=== PATIENT | female | born 1980 | race Caucasian/White ===

== ENCOUNTER → 2022-08-29 16:12 | Outpatient (BNVA) | payer OTHER, SELFPAY | PROVIDERS: PCP Internal Medicine; Visit Provider Psychiatry & Neurology Psychiatry | DX: F43.12 Post-traumatic stress disorder, chronic (principal); F10.91 Alcohol use, unspecified, in remission; F32.5 Major depressive disorder, single episode, in full remission | CPT/HCPCS: 90833 ==

== ENCOUNTER → 2022-11-19 14:51 | Outpatient (BNVA) | payer OTHER, SELFPAY | PROVIDERS: PCP Internal Medicine; Visit Provider Psychiatry & Neurology Psychiatry | DX: Z13.89 Encounter for screening for other disorder (principal) ==

== ENCOUNTER → 2023-02-18 16:25 | Outpatient (BNVA) | payer OTHER, SELFPAY | PROVIDERS: PCP Internal Medicine; Visit Provider Psychiatry & Neurology Psychiatry | DX: F43.12 Post-traumatic stress disorder, chronic (principal); F10.91 Alcohol use, unspecified, in remission; F32.5 Major depressive disorder, single episode, in full remission ==

== ENCOUNTER 2023-05-28 16:16 | Outpatient (AMB) | payer OTHER, SELFPAY ==
--- NOTE | 2023-05-28 16:37 | MHC.OFFVISPS ---
Intake Intake Visit Reasons: depression Allergies azithromycin [From ZITHROMAX Z-EMIL] Allergy (Unknown, Unverified 06/29/20 17:05) HIVES HPI- Psychiatric Chief Complaint: depression HPI Narrative: Pt seen in f/u mood has been stable geneally good things are stable has remained stable looking to taper down on trazadone cont on wellbutrin has been sober ongoing using cyproeptadine returning to work as teacher Past Psychiatric History: History of 2 past psychiatric hospitalizations past suicidality history of PTSD recurrent depression has been generally East stable mood mary for an extended period of time Mental Status Exam Mental Status Exam Narrative: Mental Status Exam Narrative: Appearance: Casually dressed Behavior: Cooperative appropriate psychomotor: Within normal limits Speech: Normal volume and prosody Thought proccess logical difficulty with pain issues and thoughts related to addiction Thought content: Future oriented no self-harming thoughts occ dreams re relapse Mood: Euthymic Affect: Appropriate to mood full affect SI:denies HI:denies VH/AH:none Delusions: None Insight/judgment: Good insight and judgment Memory/cog: Intact Assessment and Plan Assessment & Plan (1) Chronic post-traumatic stress disorder (PTSD): Status: Acute Code(s): F43.12 - Post-traumatic stress disorder, chronic (2) Alcohol use disorder in remission: Status: Acute Code(s): F10.91 - Alcohol use, unspecified, in remission (3) Major depression in full remission: Status: Acute Code(s): F32.5 - Major depressive disorder, single episode, in full remission Plan cont ambien has not been able to taper cont razadone wellbutrin cont 12 step Medications: Refilled zolpidem (Ambien) 5 mg PO BEDTIME PRN 30 tabs 2RF insomnia Discontinued clonidine HCl Discontinued Reason: No Longer Medically Relevant 0.1 mg PO BEDTIME 30 tabs 3RF naltrexone Discontinued Reason: Doctor's Order 50 mg PO DAILY 30 tabs 3RF Counseling and coordination of Care Pt. Self Management counseling: Maintenance-social rhythm and Sleep hygiene Medication management counseling: Dosing range and Duration Diagnosis and Prognosis Counseling: Adequacy of current interventions Details: I spent [30] minutes reviewing the record, seeing the patient and documenting in the medical record. Counseling provided to the patient/caregiver as outlined below. Addressed patient/caregiver concerns regarding current medication regime including effective adherence. Addressed patient/caregiver concerns regarding diagnosis and prognosis including accuracy of diagnosis, prognosis over time, impact of diagnosis. Addressed patient/caregiver concerns regarding impact of recent stressors. 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
== END 2023-05-28 16:18 | disposition home or self-care (01) ==
LOC: HO.HOP 16:16
PROVIDERS: PCP Internal Medicine; Visit Provider Psychiatry & Neurology Psychiatry
DX: F43.12 Post-traumatic stress disorder, chronic (principal); F10.91 Alcohol use, unspecified, in remission; F32.5 Major depressive disorder, single episode, in full remission
CPT/HCPCS: 99214

== ENCOUNTER → 2023-05-28 16:16 | Outpatient (BNVA) | payer OTHER, SELFPAY | PROVIDERS: PCP Internal Medicine; Visit Provider Psychiatry & Neurology Psychiatry | DX: F43.12 Post-traumatic stress disorder, chronic (principal); F10.91 Alcohol use, unspecified, in remission; F32.5 Major depressive disorder, single episode, in full remission ==

== ENCOUNTER 2024-01-27 12:12 | Outpatient (AMB) | payer OTHER, SELFPAY ==
--- NOTE | 2024-01-27 12:23 | A.OFFPSYCH_ITS ---
Intake Intake Visit Reasons: depression Allergies azithromycin [From ZITHROMAX Z-EMIL] Allergy (Unknown, Unverified 06/29/20 17:05) HIVES Medication List - Last Reconciled 01/27/24 by Iván Virk MD bupropion HCl XL 300 mg PO DAILY clonidine HCl 0.1 mg PO BEDTIME cyproheptadine 4 mg PO BEDTIME PRN darifenacin ER 7.5 mg PO DAILY montelukast 10 mg PO DAILY trazodone 50 - 150 mg (1 - 3 x 50 mg) PO BEDTIME PRN zolpidem (Ambien) 5 mg PO BEDTIME PRN HPI- Psychiatric Chief Complaint: depression HPI Narrative: Pt is a 43 yo female hx ptsd has generally been doing well sober from alcohol does uses marijuana vaping aware can be problematic has been stable on wellbutrin has been doing marital counseling Past Psychiatric History: History of 2 past psychiatric hospitalizations past suicidality history of PTSD recurrent depression has been generally East stable mood mary for an extended period of time Mental Status Exam Mental Status Exam Narrative: Mental Status Exam Narrative: Appearance: Casually dressed Behavior: Cooperative appropriate psychomotor: Within normal limits Speech: Normal volume and prosody Thought proccess logical difficulty with pain issues and thoughts related to addiction Thought content: Future oriented no self-harming thoughts occ dreams re relapse Mood: Euthymic Affect: Appropriate to mood full affect SI:denies HI:denies VH/AH:none Delusions: None Insight/judgment: Good insight and judgment Memory/cog: Intact Assessment and Plan Assessment & Plan (1) Chronic post-traumatic stress disorder (PTSD): Status: Acute Code(s): F43.12 - Post-traumatic stress disorder, chronic (2) Major depression in full remission: Status: Acute Code(s): F32.5 - Major depressive disorder, single episode, in full remission (3) Alcohol use disorder in remission: Status: Acute Code(s): F10.91 - Alcohol use, unspecified, in remission Plan Continue plan of care mood generally stable encourage tapering marijuana vaping encourage coping strateguies yoga meditation has had decrease in ptsd sx generally stable on wellbutrin clonidine cyproheptadine trazodone at bedtime for combination depressive symptoms and insomnia nightmares Medications: Refilled trazodone 50 - 150 mg (1 - 3 x 50 mg) PO BEDTIME PRN 90 tabs 3RF insomnia clonidine HCl 0.1 mg PO BEDTIME 30 tabs 3RF zolpidem (Ambien) 5 mg PO BEDTIME PRN 30 tabs 2RF insomnia bupropion HCl XL 300 mg PO DAILY 30 tabs 3RF cyproheptadine 4 mg PO BEDTIME PRN 90 tabs 1RF nightmares Counseling and coordination of Care Pt. Self Management counselin Step program, Breathing, Exercise and General coping skills Details: I spent [30] minutes reviewing the record, seeing the patient and documenting in the medical record. Counseling provided to the patient/caregiver as outlined below. Addressed patient/caregiver concerns regarding current medication regime including effective adherence. Addressed patient/caregiver concerns regarding diagnosis and prognosis including accuracy of diagnosis, prognosis over time, impact of diagnosis. Addressed patient/caregiver concerns regarding impact of recent stressors. 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
== END 2024-01-27 16:37 | disposition home or self-care (01) ==
LOC: HO.HOP 12:12
PROVIDERS: Visit Provider Psychiatry & Neurology Psychiatry
DX: F43.12 Post-traumatic stress disorder, chronic (principal); F32.5 Major depressive disorder, single episode, in full remission; F10.91 Alcohol use, unspecified, in remission
CPT/HCPCS: 99214

== ENCOUNTER → 2024-01-27 12:12 | Outpatient (BNVA) | payer OTHER, SELFPAY | PROVIDERS: Visit Provider Psychiatry & Neurology Psychiatry | DX: F43.12 Post-traumatic stress disorder, chronic (principal); F10.91 Alcohol use, unspecified, in remission; F32.5 Major depressive disorder, single episode, in full remission ==

== ENCOUNTER 2024-04-13 15:26 | Outpatient (AMB) | payer OTHER, SELFPAY ==
--- NOTE | 2024-04-13 16:03 | MHC.OFFVISPS ---
Intake Intake Visit Reasons: depression Allergies azithromycin [From ZITHROMAX Z-EMIL] Allergy (Unknown, Unverified 06/29/20 17:05) HIVES Medication List - Last Reconciled 04/13/24 by Iván Virk MD bupropion HCl XL 300 mg PO DAILY clonidine HCl 0.1 mg PO BEDTIME cyproheptadine 4 mg PO BEDTIME PRN darifenacin ER 7.5 mg PO DAILY mirtazapine 7.5 - 15 mg (0.5 - 1 x 15 mg) PO BEDTIME 30 days montelukast 10 mg PO DAILY trazodone 50 - 150 mg (1 - 3 x 50 mg) PO BEDTIME PRN zolpidem (Ambien) 5 mg PO BEDTIME PRN HPI- Psychiatric Chief Complaint: depression HPI Narrative: Patient has been somewhat more anxious dysphoric PTSD has been more triggered. Having a difficult relationship with her feels they may be stuck and that they are not progressing feeling misunderstood not listen to. Some increase in PTSD symptoms Past Psychiatric History: History of 2 past psychiatric hospitalizations past suicidality history of PTSD recurrent depression has been generally East stable mood mary for an extended period of time Mental Status Exam Mental Status Exam Narrative: Mental Status Exam Narrative: Appearance: Casually dressed Behavior: Cooperative appropriate psychomotor: Within normal limits Speech: Normal volume and prosody Thought proccess logical ruminating Thought content: Future oriented no self-harming thoughts but focused on difficulty in her marriage Mood: anxious dysphoric Affect: Appropriate to mood SI:denies HI:denies VH/AH:none Delusions: None Insight/judgment: Good insight and judgment Memory/cog: Intact Assessment and Plan Assessment & Plan (1) Chronic post-traumatic stress disorder (PTSD): Status: Acute Code(s): F43.12 - Post-traumatic stress disorder, chronic (2) Alcohol use disorder in remission: Status: Acute Code(s): F10.91 - Alcohol use, unspecified, in remission (3) Major depression in full remission: Status: Acute Code(s): F32.5 - Major depressive disorder, single episode, in full remission Plan Patient seen psychiatric follow-up has been having more anxiety and concern regarding her marriage had been using more marijuana she remains sober from alcohol some difficulty at times with anxiety intrusive memories mirtazapine for insomnia and anxiety Medications: New mirtazapine 7.5 - 15 mg (0.5 - 1 x 15 mg) PO BEDTIME 30 tabs 1RF 30 days Counseling and coordination of Care Pt. Self Management counseling: Breathing, Maintenance-social rhythm and Sleep hygiene Medication management counseling: Effectiveness, Side effects and Dosing range Diagnosis and Prognosis Counseling: Accuracy of diagnosis, Problematic behaviors secondary to diagnosis and Adequacy of current interventions Details: I spent [38] minutes reviewing the record, seeing the patient and documenting in the medical record. Counseling provided to the patient/caregiver as outlined below. Addressed patient/caregiver concerns regarding current medication regime including effective adherence. Addressed patient/caregiver concerns regarding diagnosis and prognosis including accuracy of diagnosis, prognosis over time, impact of diagnosis. Addressed patient/caregiver concerns regarding impact of recent stressors. 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
== END 2024-04-13 16:10 | disposition home or self-care (01) ==
LOC: HO.HOP 15:26
PROVIDERS: Visit Provider Psychiatry & Neurology Psychiatry
DX: F43.12 Post-traumatic stress disorder, chronic (principal); F10.91 Alcohol use, unspecified, in remission; F32.5 Major depressive disorder, single episode, in full remission
CPT/HCPCS: 90833; 99213

== ENCOUNTER → 2024-04-13 15:26 | Outpatient (BNVA) | payer OTHER, SELFPAY | PROVIDERS: Visit Provider Psychiatry & Neurology Psychiatry ==

== ENCOUNTER → 2024-04-28 13:52 | Outpatient (BNVA) | payer OTHER, SELFPAY | PROVIDERS: Visit Provider Psychiatry & Neurology Psychiatry ==

== ENCOUNTER 2024-09-08 14:36 | Outpatient (AMB) | payer OTHER, SELFPAY ==
--- NOTE | 2024-09-08 15:31 | MHC.OFFVISPS ---
Intake Intake Visit Reasons: depression Allergies azithromycin [From ZITHROMAX Z-EMIL] Allergy (Unknown, Unverified 06/29/20 17:05) HIVES Medication List - Last Reconciled 09/08/24 by Iván Virk MD bupropion HCl XL 300 mg PO DAILY clonidine HCl 0.1 mg PO BEDTIME 90 days cyproheptadine 4 mg PO BEDTIME PRN darifenacin ER 7.5 mg PO DAILY mirtazapine 7.5 - 15 mg (0.5 - 1 x 15 mg) PO BEDTIME 30 days montelukast 10 mg PO DAILY trazodone 50 - 150 mg (1 - 3 x 50 mg) PO BEDTIME PRN zolpidem (Ambien) 5 mg PO BEDTIME PRN HPI- Psychiatric Chief Complaint: depression HPI Narrative: Patient seen psychiatric follow-up the patient has had increase in PTSD symptoms in relationship to her and had asked him to leave. She realized after an extended period of time that in spite of couples therapy intermittent therapy that things were never going to be stable between the 2 of them she can not trust him patient appears to be comfortable with her decision teaching going well no new medical problems. Continues on Wellbutrin clonidine trazodone at HS Past Psychiatric History: History of 2 past psychiatric hospitalizations past suicidality history of PTSD recurrent depression has been generally East stable mood mary for an extended period of time Mental Status Exam Mental Status Exam Narrative: Mental Status Exam Narrative: Appearance: Casually dressed Behavior: Cooperative appropriate psychomotor: Within normal limits Speech: Normal volume and prosody Thought proccess logical ruminating Thought content: Future oriented no self-harming thoughts but focused on decision-making and separation/divorce from her Mood: Some anxiety Affect: Appropriate to mood SI:denies HI:denies VH/AH:none Delusions: None Insight/judgment: Good insight and judgment Feels comfortable with her decision Memory/cog: Intact Assessment and Plan Assessment & Plan (1) Chronic post-traumatic stress disorder (PTSD): Status: Acute Code(s): F43.12 - Post-traumatic stress disorder, chronic (2) Major depression in full remission: Status: Acute Code(s): F32.5 - Major depressive disorder, single episode, in full remission (3) ADD (attention deficit disorder) without hyperactivity: Status: Acute Code(s): F98.8 - Other specified behavioral and emotional disorders with onset usually occurring in childhood and adolescence (4) Alcohol use disorder in remission: Status: Acute Code(s): F10.91 - Alcohol use, unspecified, in remission Plan Patient doing better with the addition of mirtazapine concerta 18 mg for attention organization restart Continue Wellbutrin monitor blood pressure patient currently from her there will be additional pressure possibility of divorce patient is in ongoing counseling with her clinical psychologist Liliana Padgett . Mood seems stable at this time pt seems comfortable with her decision Medications: New methylphenidate HCl ER (Concerta) Partial Fill upon patient request. 18 mg PO DAILY 60 tabs 0RF F98.8 - Other specified behavioral and emotional disorders with onset usually occurring in childhood and adolescence Refilled mirtazapine 7.5 - 15 mg (0.5 - 1 x 15 mg) PO BEDTIME 30 tabs 1RF 30 days bupropion HCl XL 300 mg PO DAILY 90 tabs 1RF clonidine HCl 0.1 mg PO BEDTIME 90 tabs 1RF 90 days F43.12 - Post-traumatic stress disorder, chronic, F32.5 - Major depressive disorder, single episode, in full remission cyproheptadine 4 mg PO BEDTIME PRN 90 tabs 1RF nightmares Discontinued trazodone Discontinued Reason: Doctor's Order 50 - 150 mg (1 - 3 x 50 mg) PO BEDTIME PRN 90 tabs 3RF insomnia Counseling and coordination of Care Medication management counseling: Effectiveness and Side effects Details-Med Mgmt counseling: Discontinue trazodone may contribute to morning sedation Concerta restarted no cardiac history blood pressure in control Details: I spent [] minutes reviewing the record, seeing the patient and documenting in the medical record. Counseling provided to the patient/caregiver as outlined below. Addressed patient/caregiver concerns regarding current medication regime including effective adherence. Addressed patient/caregiver concerns regarding diagnosis and prognosis including accuracy of diagnosis, prognosis over time, impact of diagnosis. Addressed patient/caregiver concerns regarding impact of recent stressors. 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
== END 2024-09-08 15:38 | disposition home or self-care (01) ==
LOC: HO.HOP 14:36
PROVIDERS: Visit Provider Psychiatry & Neurology Psychiatry
DX: F43.12 Post-traumatic stress disorder, chronic (principal); F32.5 Major depressive disorder, single episode, in full remission; F98.8 Other specified behavioral and emotional disorders with onset usually occurring in childhood and adolescence; F10.91 Alcohol use, unspecified, in remission
CPT/HCPCS: 90833; 99213

== ENCOUNTER → 2024-09-08 14:36 | Outpatient (BNVA) | payer OTHER, SELFPAY | PROVIDERS: Visit Provider Psychiatry & Neurology Psychiatry ==

== ENCOUNTER 2024-11-09 14:20 | Outpatient (AMB) | payer OTHER, SELFPAY ==
--- NOTE | 2024-11-09 14:54 | MHC.OFFVISPS ---
Intake Intake Visit Reasons: depression Allergies azithromycin [From ZITHROMAX Z-EMIL] Allergy (Unknown, Unverified 06/29/20 17:05) HIVES Medication List - Last Reconciled 11/09/24 by Iván Virk MD bupropion HCl XL 300 mg PO DAILY clonidine HCl 0.1 mg PO BEDTIME 90 days cyproheptadine 4 mg PO BEDTIME PRN darifenacin ER 7.5 mg PO DAILY methylphenidate HCl ER (Concerta) 18 mg PO DAILY mirtazapine 7.5 - 15 mg (0.5 - 1 x 15 mg) PO BEDTIME 30 days montelukast 10 mg PO DAILY zolpidem (Ambien) 5 mg PO BEDTIME PRN HPI- Psychiatric Chief Complaint: depression HPI Narrative: Pt has longstanding ptsd in rel to marriage. Since being sober last 3 yrs has been more anxious without a barrier when sleeping with her . has been coming at times on the property at this point after some notification at one point came on the prop without notification. There has been intention to divorce pt generally feels relieved but negotiating seeing him around other people has been problematic. Pt has not been overly depressed can get triggered anxiety sx when triggered and upset over his past intrusive behavior. Past Psychiatric History: History of 2 past psychiatric hospitalizations past suicidality history of PTSD recurrent depression has been generally East stable mood mary for an extended period of time Mental Status Exam Mental Status Exam Narrative: Mental Status Exam Narrative: Appearance: Casually dressed Behavior: Cooperative appropriate psychomotor: Within normal limits Speech: Normal volume and prosody Thought proccess logical ruminating Thought content: Future oriented no self-harming thoughts but focused on separation/divorce from her Mood: Some anxiety Affect: Appropriate to mood SI:denies HI:denies VH/AH:none Delusions: None Insight/judgment: Good insight and judgment Feels comfortable with her decision Memory/cog: Intact Assessment and Plan Assessment & Plan (1) Chronic post-traumatic stress disorder (PTSD): Status: Acute Code(s): F43.12 - Post-traumatic stress disorder, chronic (2) Major depressive disorder, recurrent episode, in partial remission with seasonal pattern: Status: Acute Code(s): F33.41 - Major depressive disorder, recurrent, in partial remission (3) ADD (attention deficit disorder) without hyperactivity: Status: Acute Code(s): F98.8 - Other specified behavioral and emotional disorders with onset usually occurring in childhood and adolescence (4) Alcohol use disorder in remission: Status: Acute Code(s): F10.91 - Alcohol use, unspecified, in remission Plan cont current medication help with insomnia cont laurel has been helpful drinking less coffee she is seeing Liliana Padgett for ongoing psychotherapy. This will be a stressful. In her life going to mediation for divorce she is at some degree of financial risks with her pension. She is ruminating regarding Trying to keep her at a distance why they are and going through divorce that she finds him quite triggering and recently she had found him in the bedroom a couple of months ago and that was quite disturbing. Continue Wellbutrin clonidine at bedtime and day prn as needed Mirtazapine at bedtime for sleep and help with anxiety and PTSD symptoms Counseling and coordination of Care Pt. Self Management counseling: Breathing Details-Self Mgmt counseling: Issues related to PTSD divorce ongoing issues with her and separation Medication management counseling: Effectiveness, Side effects and Dosing range Diagnosis and Prognosis Counseling: Impact of diagnosis on life functions and Adequacy of current interventions Details: I spent [39] minutes reviewing the record, seeing the patient and documenting in the medical record. Counseling provided to the patient/caregiver as outlined below. Addressed patient/caregiver concerns regarding current medication regime including effective adherence. Addressed patient/caregiver concerns regarding diagnosis and prognosis including accuracy of diagnosis, prognosis over time, impact of diagnosis. Addressed patient/caregiver concerns regarding impact of recent stressors. 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
--- OUTSIDE RECORDS SUMMARY | 2024-11-09 15:16 | XMS_ITS | Continuity of Care Document ---
Author Organization [facility] Address [address] [place] [address]- Care Team Providers Care Extension Service Advisor Name Role Phone Carmen Guo MD Primary Care Physician [phone] [id number] Date(s): 09/21/24 - 10/21/24 [facility] [address] [place], [place] [address] Encounter Type: Triage Allergies, Adverse Reactions, Alerts Substance Criticality Severity Reaction Reaction Severity Status azithromycin Active Immunizations Given and Recorded Vaccine Date Status Refusal Reason [id number] 12y+ bivalent booster vax 08/15/22 Recorded influenza virus vaccine, inactivated 08/04/21 Llao rded SARS-CoV-2 (COVID-19) mRNA-1273 vaccine 08/04/21 R ecorded SARS-CoV-2 (COVID-19) mRNA-1273 vaccine 01/15/21 R ecorded SARS-CoV-2 (COVID-19) mRNA-1273 vaccine 12/16/20 R ecorded Medications cloNIDine 0.1 mg oral tablet 0.1 mg, 1, tablet, By Mouth, 2 times a day, Refills 0, Maintenance, 11/13/17 1:32:51 PM EST Start Date: 11/13/17 Status: Ordered Repeat number: 1 cyproheptadine 4 mg oral tablet 4 mg, 1, tablet, By Mouth, Daily at bedtime, # 30 tablet, Refills 0, Maintenance, 04/18/23 10:23:00 AM EDT, Partial fill upon patient request if the prescription is for a schedule II opioid drug. Start Date: 04/18/23 Status: Ordered Quantity: 30.0 Unit: tablet Repeat number: 1 darifenacin 7.5 mg oral tablet, extended release 1 tablet, By Mouth, Daily, # 90 tablet, 1 Refills, Maintenance, 09/07/24 12:14:00 PM EST[id number], 169, cm, 04/19/24 14:05:00 EDT, Height Start Date: 09/07/24 Status: Ordered Quantity: 90.0 Unit: tablet Repeat number: 1 Lorazepam 0 Refills, Maintenance, 05/28/12 4:32:22 PM EDT Start Date: 05/28/12 Status: Ordered Repeat number: 1 meloxicam 15 mg oral tablet 1 tablet = 15 mg, By Mouth, Daily, # 30 tablet, 0 Refills, Maintenance, 04/19/24 2:21:00 PM EDT, Tablet, Partial fill upon patient request if the prescription is for a schedule II opioid drug. Start Date: 04/19/24 Status: Ordered Quantity: 30.0 Unit: tablet Repeat number: 1 mirtazapine 15 mg oral tablet 1 tablet = 15 mg, By Mouth, Daily at bedtime, # 30 tablet, 0 Refills, Maintenance, 04/19/24 2:21:00 PM EDT, Tablet, Partial fill upon patient request if the prescription is for a schedule II opioid drug. Start Date: 04/19/24 Status: Ordered Quantity: 30.0 Unit: tablet Repeat number: 1 montelukast 10 mg oral tablet See Instructions, TAKE 1 TABLET BY MOUTH DAILY BEFORE DINNER, # 90 tablet, Refills 1, Tot. Refills 1, Maintenance, 05/11/24 2:47:00 PM EDT, Instructions Replace Required Details, Route to Pharmacy Electronically, [facility] #[id number], 169, cm, 04/19/24 14:05:00 EDT, Height Start Date: 05/11/24 Status: Ordered Quantity: 90.0 Unit: tablet Repeat number: 2 Wellbutrin 300, By Mouth, 0 Refills, Maintenance, 05/28/12 4:30:53 PM EDT Start Date: 05/28/12 Status: Ordered Repeat number: 1 zolpidem 5 mg oral tablet 1 tablet = 5 mg, By Mouth, Daily at bedtime, PRN as needed for insomnia, 0 Refills, Maintenance, 04/19/24 2:21:00 PM EDT, Tablet, Partial fill upon patient request if the prescription is for a scheduleII opioid drug. Start Date: 04/19/24 Status: Ordered Repeat number: 1 Zyrtec 10 mg oral tablet 1 tablet = 10 mg, By Mouth, Daily, 0 Refills, Maintenance, 05/28/12 4:32:13 PM EDT Start Date: 05/28/12 Status: Ordered Repeat number: 1 Problem List Condition Confirmation Course Effective Dates Status H ealth Status Informant ADD (attention deficit disorder) Confirmed Active Interstitial cystitis Confirmed Active Hemorrhoids Confirmed Active Insomnia Confirmed Active Low back pain Confirmed Active Mild intermittent asthma Confirmed Active Depression with anxiety Confirmed Active Perimenopause Confirmed Active PTSD (post-traumatic stress disorder) Confirmed Active Social History Social History Type Response Smoking Status Current every day sm oker; Other: currently using primarily electronic cigarettes.; entered on: 11/16/17 Sex Sex Representation Female (finding) Patient Care team information Care Team Personnel Name: Carmen Guo MD Position: [facility] Physician - Primary Care Member Role: PCP Address: [address] [place] [address] Adult and Pediatric Medicine [address] Telecom: Care Team Related Persons Name: HUSAM LOWE Name: HI LOWE Name: RUTHANN MANUEL Insurance Providers Guarantor name: JOHNNY LOWE Health Plan Information #: 1 Payer: [employer] Member Number: NA Policy Number: NA Group Number: NA
--- OUTSIDE RECORDS SUMMARY | 2024-11-09 15:16 | XMS_ITS | Continuity of Care Document ---
Author Organization [facility] Address [address] [place] [address]- Care Team Providers Care Area Relief Pilot Name Role Phone Carmen Guo MD Primary Care Physician [phone] Encounter [facility] Date(s): 09/21/24 - 10/21/24 [facility] [address] [place], [place] [address] Attending Physician: Carla Lee Admitting Physician: Carla Lee Referring Physician: AdmtrCarla Encounter Type: Triage Allergies, Adverse Reactions, Alerts Substance Criticality Severity Reaction Reaction Severity Status azithromycin Active Immunizations Given and Recorded Vaccine Date Status Refusal Reason [id number] 12y+ bivalent booster vax 08/15/22 Recorded influenza virus vaccine, inactivated 08/04/21 Lalo rded SARS-CoV-2 (COVID-19) mRNA-1273 vaccine 08/04/21 R [...] 1 Refills, Maintenance, 09/07/24 12:14:00 PM EST, [facility] #[id number], 169, cm, 04/19/24 14:05:00 EDT, Height Start [...] Replace Required Details, Route to Pharmacy Electronically, [facility] #[id number], 169, cm, 04/19/24 14:05:00 EDT, Height Start [...] Team Personnel Name: Carmen Guo MD Position: [facility] Physician - Primary Care Member Role: PCP Address: [address] [place] [address] Adult and Pediatric Medicine [address] Telecom: Care Team Related Persons Name: HUSAM LOWE Name: HI LOWE Name: RUTHANN MANUEL Insurance Providers Guarantor name: JOHNNY LOWE Health Plan Information #: 1 Payer: [facility] SELECT HMO Member Number: NA Policy Number: NA Group Number: [id number]
== END 2024-11-09 15:19 | disposition home or self-care (01) ==
LOC: HO.HOP 14:20
PROVIDERS: Visit Provider Psychiatry & Neurology Psychiatry
DX: F43.12 Post-traumatic stress disorder, chronic (principal); F33.41 Major depressive disorder, recurrent, in partial remission; F98.8 Other specified behavioral and emotional disorders with onset usually occurring in childhood and adolescence; F10.91 Alcohol use, unspecified, in remission
CPT/HCPCS: 90833; 99213

== ENCOUNTER 2025-01-04 14:17 | Outpatient (AMB) | payer OTHER, SELFPAY ==
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
== END 2025-01-04 15:05 | disposition home or self-care (01) ==
LOC: HO.HOP 14:17
PROVIDERS: Visit Provider Psychiatry & Neurology Psychiatry
DX: F43.12 Post-traumatic stress disorder, chronic (principal); F32.5 Major depressive disorder, single episode, in full remission; F98.8 Other specified behavioral and emotional disorders with onset usually occurring in childhood and adolescence; F10.91 Alcohol use, unspecified, in remission
CPT/HCPCS: 99214

== ENCOUNTER 2025-04-12 14:01 | Outpatient (AMB) | payer OTHER, SELFPAY ==
--- NOTE | 2025-04-12 14:18 | A.OFFPSYCH_ITS ---
Intake Intake Visit Reasons: depression Allergies azithromycin (From ZITHROMAX Z-EMIL) Allergy (Unknown, Unverified 06/29/20 17:05) HIVES HPI- Psychiatric Chief Complaint: depression HPI Narrative: PATIENT SEEN PSYCHIATRIC FOLLOW-UP. The patient's mood has been good stable things are going well with mediation with her with whom she is from and seem to be . Patient did cell their house and has bought a new house. She remains sober future oriented sleep is improved less in the way of any PTSD symptoms Past Psychiatric History: History of 2 past psychiatric hospitalizations past suicidality history of PTSD recurrent depression has been generally East stable mood mary for an extended period of time Pt is worried how mediation is going to go Mental Status Exam Mental Status Exam Narrative: Mental Status Exam Narrative: Appearance: Casually dressed Behavior: Cooperative appropriate psychomotor: Within normal limits Speech: Normal volume and prosody Thought proccess logical ruminating Thought content: Future oriented focused on on her future feeling good and treatment Mood: Good Affect: Appropriate to mood SI:denies HI:denies VH/AH:none Delusions: None Insight/judgment: Good insight and judgment Feels comfortable with her decision Memory/cog: Intact Assessment and Plan Assessment & Plan (1) Chronic post-traumatic stress disorder (PTSD): Status: Acute Code(s): F43.12 - Post-traumatic stress disorder, chronic (2) ADD (attention deficit disorder) without hyperactivity: Status: Acute Code(s): F98.8 - Other specified behavioral and emotional disorders with onset usually occurring in childhood and adolescence Plan Continue Concerta cyproheptadine Wellbutrin try and taper Ambien patient generally doing well Medications: Changed From methylphenidate HCl ER Partial Fill upon patient request. 18 mg PO DAILY 90 days 90 tabs 0RF F98.8 - Other specified behavioral and emotional disorders with onset usually occurring in childhood and adolescence To methylphenidate HCl ER (Concerta) Partial Fill upon patient request. 18 mg PO DAILY 60 tabs 0RF 60 days F98.8 - Other specified behavioral and emotional disorders with onset usually occurring in childhood and adolescence Refilled cyproheptadine 4 mg PO BEDTIME PRN 90 tabs 1RF nightmares methylphenidate HCl ER (Concerta) Partial Fill upon patient request. 18 mg PO DAILY 90 tabs 0RF 90 days F98.8 - Other specified behavioral and emotional disorders with onset usually occurring in childhood and adolescence mirtazapine 7.5 - 15 mg (0.5 - 1 x 15 mg) PO BEDTIME 30 tabs 2RF 30 days methylphenidate HCl ER (Concerta) Partial Fill upon patient request. 18 mg PO DAILY 60 tabs 0RF 60 days F98.8 - Other specified behavioral and emotional disorders with onset usually occurring in childhood and adolescence Counseling and coordination of Care Medication management counseling: Effectiveness, Side effects and Dosing range Diagnosis and Prognosis Counseling: Adequacy of current interventions Details: I spent [] minutes reviewing the record, seeing the patient and documenting in the medical record. Counseling provided to the patient/caregiver as outlined below. Addressed patient/caregiver concerns regarding current medication regime including effective adherence. Addressed patient/caregiver concerns regarding diagnosis and prognosis including accuracy of diagnosis, prognosis over time, impact of diagnosis. Addressed patient/caregiver concerns regarding impact of recent stressors. 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
== END 2025-04-12 14:24 | disposition home or self-care (01) ==
LOC: HO.HOP 14:01
PROVIDERS: Visit Provider Psychiatry & Neurology Psychiatry
DX: F43.12 Post-traumatic stress disorder, chronic (principal); F98.8 Other specified behavioral and emotional disorders with onset usually occurring in childhood and adolescence
CPT/HCPCS: 99214

== ENCOUNTER → 2025-05-27 14:27 | Outpatient (AMB) | payer OTHER, SELFPAY ==
--- NOTE | 2025-05-27 15:48 | A.OFFPSYCH_ITS ---
Intake Intake Visit Reasons: DEPRESSION Allergies azithromycin (From ZITHROMAX Z-EMIL) Allergy (Unknown, Unverified 06/29/20 17:05) HIVES HPI- Psychiatric Chief Complaint: DEPRESSION HPI Narrative: Patient seen psychiatric follow-up. Patient has been recently diagnosed with breast cancer carcinoma in Situ. Has felt overwhelmed and recently has involvement divorce just bought a new house feeling overwhelmed with new diagnosis and concerned about having plastic reconstruction and whether she can do that she is vaping intermittently. Patient had been doing quite well feeling much better generally patient has been taking Wellbutrin clonidine Ambien she continues to work. Feeling somewhat overwhelmed Past Psychiatric History: History of 2 past psychiatric hospitalizations past suicidality history of PTSD recurrent depression has been generally East stable mood mary for an extended period of time Pt is worried how mediation is going to go Mental Status Exam Mental Status Exam Narrative: Mental Status Exam Narrative: Appearance: Casually dressed Behavior: Cooperative appropriate psychomotor: Within normal limits Speech: Normal volume and prosody Thought proccess logical ruminating Thought content: Focused on new cancer diagnosis feeling overwhelmed understands good prognosis but quite concerned about surgery and feeling not understood by recent conversation with her surgeon Mood: Anxious overwhelmed Affect: Appropriate to mood SI:denies HI:denies VH/AH:none Delusions: None Insight/judgment: Good insight and judgment generally but feeling overwhelmed with decision-making rate now Memory/cog: Intact PHQ-9 JERRY elevated Assessment and Plan Assessment & Plan (1) Chronic post-traumatic stress disorder (PTSD): Status: Acute Code(s): F43.12 - Post-traumatic stress disorder, chronic (2) Alcohol use disorder in remission: Status: Acute Code(s): F10.91 - Alcohol use, unspecified, in remission (3) Adjustment disorder with anxious mood: Status: Acute Code(s): F43.22 - Adjustment disorder with anxiety Plan Patient seen needs much reassurance. Discussed different strategies offered contact as needed follow-up 1 week. Mirtazapine at bedtime as needed continue Wellbutrin Counseling and coordination of Care Pt. Self Management counseling: Problem solving Medication management counseling: Effectiveness and Side effects Diagnosis and Prognosis Counseling: Adequacy of current interventions Details: I spent [40] minutes reviewing the record, seeing the patient and documenting in the medical record. Counseling provided to the patient/caregiver as outlined below. Addressed patient/caregiver concerns regarding current medication regime including effective adherence. Addressed patient/caregiver concerns regarding diagnosis and prognosis including accuracy of diagnosis, prognosis over time, impact of diagnosis. Addressed patient/caregiver concerns regarding impact of recent stressors. 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
== END ==
LOC: HO.HOP 14:27
PROVIDERS: PCP Internal Medicine; Visit Provider Psychiatry & Neurology Psychiatry
DX: F43.12 Post-traumatic stress disorder, chronic (principal); F10.91 Alcohol use, unspecified, in remission; F43.22 Adjustment disorder with anxiety
CPT/HCPCS: 90833; 99213

== ENCOUNTER 2025-06-01 16:04 | Outpatient (AMB) | payer OTHER, SELFPAY ==
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
== END 2025-06-01 16:05 | disposition home or self-care (01) ==
LOC: HO.HOP 16:04
PROVIDERS: PCP Internal Medicine; Visit Provider Psychiatry & Neurology Psychiatry
DX: F43.12 Post-traumatic stress disorder, chronic (principal); F98.8 Other specified behavioral and emotional disorders with onset usually occurring in childhood and adolescence
CPT/HCPCS: 99214

== ENCOUNTER 2025-07-12 17:02 | Outpatient (AMB) | payer OTHER, SELFPAY ==
--- NOTE | 2025-07-12 15:44 | A.OFFPSYCH_ITS ---
Intake Intake Visit Reasons: DEPRESSION Allergies azithromycin (From ZITHROMAX Z-EMIL) Allergy (Unknown, Unverified 06/29/20 17:05) HIVES HPI- Psychiatric Chief Complaint: DEPRESSION HPI Narrative: pt has been doing ok has been quite worried re upcoming surgery feeling vulnerable worried about the impact of the surgery how the plastic surgery will go its impact on her life what support she might be able to have after the surgery Past Psychiatric History: History of 2 past psychiatric hospitalizations past suicidality history of PTSD recurrent depression has been generally East stable mood mary for an extended period of time Pt is worried how mediation is going to go Mental Status Exam Mental Status Exam Narrative: Narrative: Appearance: Casually dressed Behavior: Cooperative appropriate psychomotor: Within normal limits Speech: Normal volume and prosody Thought proccess logical ruminating Thought content: Focused on medical issues upcoming surgery Mood: Anxious overwhelmed Affect: Appropriate to mood SI:denies HI:denies VH/AH:none Delusions: None Insight/judgment: Feeling emotionally overwhelmed vulnerable Memory/cog: Intact PHQ-9 JERRY elevated Telehealth Telehealth Location of provider rendering services: practice address Location of patient: address on file Patient Identification confirmed using: Name, : Yes Telehealth method: video Patient verbally consented to treatment: Yes Patient verbally consented to billing insurance company: Yes Minutes spent on Phone/Video with Pt.: 30 Assessment and Plan Assessment & Plan (1) Chronic post-traumatic stress disorder (PTSD): Status: Acute Code(s): F43.12 - Post-traumatic stress disorder, chronic (2) ADD (attention deficit disorder) without hyperactivity: Status: Acute Code(s): F98.8 - Other specified behavioral and emotional disorders with onset usually occurring in childhood and adolescence Plan Patient given emotional support problem solve available status post surgery has clonidine Wellbutrin patient remains sober Counseling and coordination of Care Pt. Self Management counseling: Problem solving Details-Self Mgmt counseling: Issues regarding safety and anxiety Diagnosis and Prognosis Counseling: Adequacy of current interventions Details: I spent [35] minutes reviewing the record, seeing the patient and documenting in the medical record. Counseling provided to the patient/caregiver as outlined below. Addressed patient/caregiver concerns regarding current medication regime including effective adherence. Addressed patient/caregiver concerns regarding diagnosis and prognosis including accuracy of diagnosis, prognosis over time, impact of diagnosis. Addressed patient/caregiver concerns regarding impact of recent stressors. 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
== END 2025-07-12 17:02 | disposition home or self-care (01) ==
LOC: HO.HOP 17:02
PROVIDERS: PCP Internal Medicine; Visit Provider Psychiatry & Neurology Psychiatry
DX: F43.12 Post-traumatic stress disorder, chronic (principal); F98.8 Other specified behavioral and emotional disorders with onset usually occurring in childhood and adolescence
CPT/HCPCS: 99214

== ENCOUNTER 2025-08-02 17:13 | Outpatient (AMB) | payer OTHER, SELFPAY ==
--- NOTE | 2025-08-02 16:08 | A.OFFPSYCH_ITS ---
Intake Intake Visit Reasons: depression Allergies azithromycin (From ZITHROMAX Z-EMIL) Allergy (Unknown, Unverified 06/29/20 17:05) HIVES Medication List - Last Reconciled 08/02/25 by Iván Virk MD bupropion HCl XL 300 mg PO DAILY clonidine HCl 0.1 mg PO BID PRN 90 days cyproheptadine 4 mg PO BEDTIME PRN darifenacin ER 7.5 mg PO DAILY methylphenidate HCl ER (Concerta) 18 mg PO DAILY 60 days mirtazapine 7.5 - 15 mg (0.5 - 1 x 15 mg) PO BEDTIME 30 days montelukast 10 mg PO DAILY oxycodone 5 mg PO Q8H PRN zolpidem (Ambien) 5 mg PO BEDTIME PRN HPI- Psychiatric Chief Complaint: depression HPI Narrative: Pt seen in f/uThe patient verbally consented to this video encounter. This video encounter was conducted via secure, interactive video conferencing. The patient's identity was established before proceeding with the video encounter by confirmation of their name and an additional identifier. Reason for Visit: Follow-up on breast cancer treatment and management plan. Subjective: The patient is discussing a recent diagnosis of invasive breast cancer. She underwent a lymph node extraction yesterday, which she describes as extremely painful. The patient had previously undergone breast reconstruction surgery after a large area of cancer was removed, but further testing revealed invasive cancer behind the initial in situ cancer. She is preparing for twelve weeks of chemotherapy, followed by additional breast surgery and possibly more reconstruction, as well as radiation therapy. The patient is experiencing significant emotional distress due to the cancer diagnosis, treatment plan, and personal issues including a divorce and home renovations. Her parents, who are supportive but have difficulty respecting her boundaries, attended a recent oncology appointment to understand her treatment plan. The patient is currently taking oxycodone for pain management following surgery. She will begin chemotherapy and will receive Herceptin for a year. She has an upcoming echocardiogram scheduled for Friday and will have a port placement for chemotherapy. The patient is on medical leave for the duration of her treatment due to the physical demands of her work. She has requested a refill for Wellbutrin and Ambien, and is in contact with social workers for additional support. Past Psychiatric History: History of 2 past psychiatric hospitalizations past suicidality history of PTSD recurrent depression has been generally East stable mood mary for an extended period of time Pt is worried how mediation is going to go Mental Status Exam Mental Status Exam Narrative: Narrative: Appearance: Casually dressed Behavior: Cooperative appropriate psychomotor: Within normal limits Speech: Normal volume and prosody Thought proccess logical ruminating Thought content: Focused on medical issues and parent involvement Mood: anxiety Affect: Appropriate to mood more full range SI:denies HI:denies VH/AH:none Delusions: None Insight/judgment: Feeling emotionally improved still anxious Memory/cog: Intact PHQ-9 JERRY elevated Telehealth Telehealth Telehealth Platform: JW Player Location of provider rendering services: practice address Location of patient: address on file Patient Identification confirmed using: Name, : Yes Telehealth method: video Patient verbally consented to treatment: Yes Patient verbally consented to billing insurance company: Yes Minutes spent on Phone/Video with Pt.: 15 Assessment and Plan Assessment & Plan (1) Chronic post-traumatic stress disorder (PTSD): Status: Acute Code(s): F43.12 - Post-traumatic stress disorder, chronic (2) Major depressive disorder, recurrent episode, in partial remission with seasonal pattern: Status: Acute Code(s): F33.41 - Major depressive disorder, recurrent, in partial remission (3) ADD (attention deficit disorder) without hyperactivity: Status: Acute Code(s): F98.8 - Other specified behavioral and emotional disorders with onset usually occurring in childhood and adolescence Plan Patient feeling more centered although upset over needing more surgery and the original surgery not being fully complete. Has support from parents but somewhat conflictual her mother having somewhat difficult boundaries. Patient denies any substance relapse to be out of work for an extended period of time and where that she would benefit from structure continue Wellbutrin Ambien clonidine Periactin at HS Medications: Refilled zolpidem (Ambien) 5 mg PO BEDTIME PRN 30 tabs 2RF insomnia Counseling and coordination of Care Details-Self Mgmt counseling: Issues related to current medical situation does see Dr. Liliana rojas Medication management counseling: Effectiveness and Side effects Diagnosis and Prognosis Counseling: Impact of diagnosis on life functions and Adequacy of current interventions Details: I spent [] minutes reviewing the record, seeing the patient and documenting in the medical record. Counseling provided to the patient/caregiver as outlined below. Addressed patient/caregiver concerns regarding current medication regime including effective adherence. Addressed patient/caregiver concerns regarding diagnosis and prognosis including accuracy of diagnosis, prognosis over time, impact of diagnosis. Addressed patient/caregiver concerns regarding impact of recent stressors. 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
== END 2025-08-02 17:13 | disposition home or self-care (01) ==
LOC: HO.HOP 17:13
PROVIDERS: PCP Internal Medicine; Visit Provider Psychiatry & Neurology Psychiatry
DX: F43.12 Post-traumatic stress disorder, chronic (principal); F33.41 Major depressive disorder, recurrent, in partial remission; F98.8 Other specified behavioral and emotional disorders with onset usually occurring in childhood and adolescence
CPT/HCPCS: 99213

== ENCOUNTER 2025-09-26 16:19 | Outpatient (AMB) | payer OTHER, SELFPAY ==
--- OUTSIDE RECORDS SUMMARY | 2025-09-20 23:59 | XMS_ITS | Continuity of Care Document ---
Author Organization [facility] Plastic Sean meghan Address [address] [place] [address] [address] [place] [address]- Care Team Providers Care Sheet Folder Name Role Phone Carmen Guo MD Primary Care Physician Encounter [facility] Date(s): 09/13/25 - 09/20/25 [facility] Surgery [address] [place] [id number]- Attending Physician: Maurice Kurtz MD Encounter Type: Office Visit Allergies, Adverse Reactions, Alerts Substance Criticality Severity Reaction Reaction Severity Status azithromycin hives Active Functional Status Functional Status Assessment Assessment Assessment Component Result Effecti ve Date Disability status [CUBS] I'm Thriving - no identified disability 09/13/25 Because of a physica l, mental, or emotional condition, do you have difficulty doing errands alone such as visiting a physician's office or shopping Unknown 09/13/25 Because of a physica l, mental, or emotional condition, do you have serious difficulty concentrating, remembering, or making decisions Unknown 09/13/25 Do you have serious difficulty walking or climbing stairs Unknown 09/13/25 Do you need any susan tional assistance or accommodations during your visit Unknown 09/13/25 Are you blind, or do you have serious difficulty seeing, even when wearing glasses Unknown 09/13/25 Difficulty communica ting in usual language Unknown 09/13/25 Difficulty Reading O r Writing Unknown 09/13/25 Do you have difficul ty dressing or bathing Unknown 09/13/25 Are you deaf, or do you have serious difficulty hearing Unknown 09/13/25 Immunizations Given and Recorded Vaccine Date Status Refusal Reason influenza virus vaccine, inactivated 1 08/25/25 Gi keshia influenza virus vaccine, inactivated 08/04/21 Lalo rded pneumococcal 20-valent conjugate vaccine 2 08/25/25 Given tetanus-diphtheria toxoids (Td) 3 04/22/25 Given [id number] 12y+ bivalent booster vax 08/15/22 Recorded SARS-CoV-2 (COVID-19) mRNA-1273 vaccine 08/04/21 R ecorded SARS-CoV-2 (COVID-19) mRNA-1273 vaccine 01/15/21 R ecorded SARS-CoV-2 (COVID-19) mRNA-1273 vaccine 12/16/20 R ecorded 1Early/Late Reason: Early/Late Reason: Other : given after chemotherapy 2Early/Late Reason: Early/Late Reason: Other : given after chemo 3Result Comment: [facility] [id number] Medications Ambien 5 mg oral tablet 0.5 tablet = 2.5 mg, By Mouth, Daily at bedtime, PRN as needed for insomnia, 0 Refills, Maintenance, 05/10/25 8:09:00 AM EDT, Tablet, Partial fill upon patient request if the prescription is for a schedule II opioid drug. Start Date: 05/10/25 Status: Ordered Medication Dispense Status: Completed Total Allowed Fills: 1 Fills Dispensed: 0 cloNIDine 0.1 mg oral tablet 0.1 mg, 1, tablet, By Mouth, Daily at bedtime, Refills 0, Maintenance, 11/13/17 1:32:51 PM EST Start Date: 11/13/17 Status: Ordered Medication Dispense Status: Completed Total Allowed Fills: 1 Fills Dispensed: 0 Concerta 18 mg oral tablet, extended release 1 tablet = 18 mg, By Mouth, Daily in AM, 0 Refills, Maintenance, 05/10/25 8:11:00 AM EDT, Partial fill upon patient request if the prescription is for a schedule II opioid drug. Start Date: 05/10/25 Status: Ordered Medication Dispense Status: Completed Total Allowed Fills: 1 Fills Dispensed: 0 Cranial Prosthesis Wig for chemotherapy related Alopecia, # 1 each, Maintenance, ICD 10 code, L65.8 and T 45.1X5 A, 08/22/25 9:21:00 AM EST, Supply Start Date: 08/22/25 Status: Ordered Medication Dispense Status: Completed Quantity: 1.0 Unit: each Total Allowed Fills: 1 Fills Dispensed: 0 cyproheptadine 4 mg oral tablet 4 mg, 1, tablet, By Mouth, Daily at bedtime, # 30 tablet, Refills 0, Maintenance, 04/18/23 10:23:00 AM EDT, Partial fill upon patient request if the prescription is for a schedule II opioid drug. Start Date: 04/18/23 Status: Ordered Medication Dispense Status: Completed Quantity: 30.0 Unit: tablet Total Allowed Fills: 1 Fills Dispensed: 0 darifenacin 7.5 mg oral tablet, extended release 1 tablet, By Mouth, Daily, # 90 tablet, 1 Refills, Maintenance, 02/24/25 4:30:00 PM EDT, [facility] #[id number], 169, cm, 01/04/25 18:27:00 EDT, Height, 75, kg, 09/21/24 14:20:00 EST, Dry Weight Start Date: 02/24/25 Status: Ordered Medication Dispense Status: Completed Quantity: 90.0 Unit: tablet Total Allowed Fills: 1 Fills Dispensed: 0 lidocaine-prilocaine 2.5%-2.5% topical cream 1 application, Topically, Once, apply to port 45 min before use, # 30 Gm, 0 Refills, Soft Stop, 08/09/25 3:50:00 PM EDT, [facility] #[id number], Partial fill upon patient request if the prescription is for a schedule II opioid drug., 1 application Topically Once,Instr:apply to port 45 min before use, 168, cm, 08/09/25 11:13:00 EDT, Height, 73, kg, 08/05/25 18:18:00 EDT, Dry Weight Start Date: 08/09/25 Status: Ordered Medication Dispense Status: Completed Quantity: 30.0 Unit: g Total Allowed Fills: 1 Fills Dispensed: 0 lidocaine-prilocaine 2.5%-2.5% topical cream See Instructions, apply small dollop to [facility] 1 hr prior to appt and cover with plastic, #30 Gm, 1 Refills, Maintenance, 08/22/25 9:21:00 AM EST, [facility] #[id number], Partialfill upon patient request if the prescription is for a schedule II opioid drug., apply small dollopto [facility] 1 hr prior to appt and cover with plastic, 168, cm, 08/18/25 8:20:00 EST, Height,74, kg, 08/18/25 8:07:00 EST, Dry Weight Start Date: 08/22/25 Status: Ordered Medication Dispense Status: Completed Quantity: 30.0 Unit: g Total Allowed Fills: 2 Fills Dispensed: 0 Lorazepam = 0.5 mg, PRN as needed for anxiety, 0 Refills, Maintenance, 05/28/12 4:32:22 PM EDT Start Date: 05/28/12 Status: Ordered Medication Dispense Status: Completed Total Allowed Fills: 1 Fills Dispensed: 0 meloxicam 15 mg oral tablet 1 tablet = 15 mg, By Mouth, Daily, # 30 tablet, 0 Refills, Maintenance, 04/19/24 2:21:00 PM EDT, Tablet, Partial fill upon patient request if the prescription is for a schedule II opioid drug. Start Date: 04/19/24 Status: Ordered Medication Dispense Status: Completed Quantity: 30.0 Unit: tablet Total Allowed Fills: 1 Fills Dispensed: 0 mirtazapine 15 mg oral tablet 1 tablet = 15 mg, By Mouth, Daily at bedtime, # 30 tablet, 0 Refills, Maintenance, 04/19/24 2:21:00 PM EDT, Tablet, Partial fill upon patient request if the prescription is for a schedule II opioid drug. Start Date: 04/19/24 Status: Ordered Medication Dispense Status: Completed Quantity: 30.0 Unit: tablet Total Allowed Fills: 1 Fills Dispensed: 0 Montelukast = 10 mg, By Mouth, Daily in AM, 0 Refills, Maintenance, 07/07/25 10:33:00 AM EDT, Partial fill upon patient request if the prescription is for a schedule II opioid drug. Start Date: 07/07/25 Status: Ordered Medication Dispense Status: Completed Total Allowed Fills: 1 Fills Dispensed: 0 Multi Vitamin+ See Instructions, daily, 0 Refills, Maintenance, 05/10/25 8:11:00 AM EDT, Partial fill upon patient request if the prescription is for a schedule II opioid drug. Start Date: 05/10/25 Status: Ordered Medication Dispense Status: Completed Total Allowed Fills: 1 Fills Dispensed: 0 ondansetron 8 mg oral tablet 1 tablet = 8 mg, By Mouth, Every 8 hours, PRN as needed for nausea/vomiting, # 30 tablet, 1 Refills, Maintenance, 08/22/25 9:21:00 AM EST, Tablet, [facility] #[id number], Partial fill upon patient request if the prescription is for a schedule II opioid drug., 168, cm, 08/18/25 8:20:00 EST, Height, 74, kg, 08/18/25 8:07:00 EST, Dry Weight Start Date: 08/22/25 Status: Ordered Medication Dispense Status: Completed Quantity: 30.0 Unit: tablet Total Allowed Fills: 2 Fills Dispensed: 0 oxyCODONE 5 mg oral tablet Refills 0, Tot. Refills 0, Maintenance, 07/27/25 3:10:00 PM EDT, Partial fill upon patient request if the prescription is for a schedule II opioid drug. Start Date: 07/27/25 Status: Ordered Medication Dispense Status: Completed Total Allowed Fills: 1 Fills Dispensed: 0 prochlorperazine 10 mg oral tablet 1 tablet = 10 mg, By Mouth, Every 6 hours, PRN nausea/vomiting, may cause drowsiness, # 30 tablet, 1 Refills, Maintenance, 08/22/25 9:21:00 AM EST, [facility] #[id number], Partial fill upon patient request if the prescription is for a schedule II opioid drug., 168, cm, 08/18/25 8:20:00 EST, Height, 74, kg, 08/18/25 8:07:00 EST, Dry Weight Start Date: 08/22/25 Status: Ordered Medication Dispense Status: Completed Quantity: 30.0 Unit: tablet Total Allowed Fills: 2 Fills Dispensed: 0 Tylenol 325 mg oral capsule 1 capsule = 325 mg, By Mouth, 3 times a day, PRN as needed for pain, # 90 capsule, 0 Refills, Maintenance, 07/29/25 1:26:00 PM EDT, Capsule, Partial fill upon patient request if the prescription is for a schedule II opioid drug. Start Date: 07/29/25 Status: Ordered Medication Dispense Status: Completed Quantity: 90.0 Unit: capsule Total Allowed Fills: 1 Fills Dispensed: 0 Wellbutrin 300, By Mouth, Daily in AM, 0 Refills, Maintenance, 05/28/12 4:30:53 PM EDT Start Date: 05/28/12 Status: Ordered Medication Dispense Status: Completed Total Allowed Fills: 1 Fills Dispensed: 0 Zyrtec 10 mg oral tablet 1 tablet = 10 mg, By Mouth, Daily, 0 Refills, Maintenance, 05/28/12 4:32:13 PM EDT Start Date: 05/28/12 Status: Ordered Medication Dispense Status: Completed Total Allowed Fills: 1 Fills Dispensed: 0 Problem List Condition Confirmation Course Effective Dates Status H ealth Status Informant ADD (attention deficit disorder) Confirmed Active 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, estrogen receptor positive Confirmed Active Interstitial cystitis Confirmed Active Hemorrhoids Confirmed Active Insomnia Confirmed Active Low back pain Confirmed Active Mild intermittent asthma Confirmed Active Depression with anxiety Confirmed Active Perimenopause Confirmed Active PTSD (post-traumatic stress disorder) Confirmed Active Vital Signs Most recent to oldest [Reference Range]: 1 Height 168.3 cm (09/13/25 9:53 AM) Weight 74 kg (09/13/25 9:53 AM) Oxygen Saturation [94-100 %] 98 % (09/13/25 9:53 AM) Pulse Rate [55-90 bpm] 68 bpm (09/13/25 9:53 AM) Body Mass Index [18.5-24.99 kg/m2] 26.13 kg/m2 *H* (09/13/25 9:53 AM) Blood Pressure [90-138/55-84 mm Hg] 118/ 72mm Hg (09/13/25 9:53 AM) Blood pressure sites Arm, left (09/13/25 9:53 AM) Patient Care team information Care Team Personnel Name: Carmen Guo MD Position: [facility] Physician - Primary Care Member Role: PCP Address: [address] [place] [address] Adult and Pediatric [address] Telecom: Name: Gladys Cantor RN Position: [facility] Onco RN Member Role: Primary Care Nurse Name: Liliana Rowell RN Position: [facility] Onco RN Member Role: Primary Care Nurse Care Team Related Persons Name: ARTEM LOWE Name: HUSAM LOWE Name: HI LOWE Name: RUTHANN MANUEL Insurance Providers Guarantor name: JOHNNY ALMONTEARES Health Plan Information #: 1 Payer: [facility] H[facility] Payer Identifier: [employer] Member Number: [id number] Group Number: [id number] Subscriber Identifier: [id number] Relationship to Subscriber: self Coverage Type: Commercial Managed Care - HMO Coverage Verification Date: Telecom: NA Address: NA
--- OUTSIDE RECORDS SUMMARY | 2025-09-22 23:59 | XMS_ITS | Continuity of Care Document ---
Author Organization [facility] Address [address] [place] [address]- Care Team Providers Care Mobile Security Architect Name Role Phone Carmen Guo MD Primary Care Physician Encounter [facility] Date(s): 08/23/25 - 09/22/25 [facility] [address], [place] [address] Encounter Type: Triage Allergies, Adverse Reactions, Alerts Substance Criticality Severity Reaction Reaction Severity Status azithromycin hives Active Immunizations Given and Recorded Vaccine Date Status Refusal Reason influenza virus vaccine, inactivated 1 08/25/25 Gi keshia influenza virus vaccine, inactivated 08/04/21 Lalo rded pneumococcal 20-valent conjugate vaccine 2 08/25/25 Given tetanus-diphtheria toxoids (Td) 3 04/22/25 Given [id number] 12y+ bivalent booster vax 08/15/22 Recorded SARS-CoV-2 (COVID-19) mRNA-1273 vaccine 08/04/21 R ecorded SARS-CoV-2 (COVID-19) mRNA-1273 vaccine 01/15/21 R ecorded SARS-CoV-2 (COVID-19) mRNA-1273 vaccine 12/16/20 R ecorded 1Early/Late Reason: Early/Late Reason: Other : given after chemotherapy 2Early/Late Reason: Early/Late Reason: Other : given after chemo 3Result Comment: [facility] [id number] Medications Ambien 5 mg oral tablet 0.5 [...] 1 Refills, Maintenance, 02/24/25 4:30:00 PM EDT, [facility] #[id number], 169, cm, 01/04/25 18:27:00 EDT, Height, 75, kg, 09/21/24 14:20:00 EST, Dry Weight Start Date: 02/24/25 Status: Ordered Medication Dispense Status: Completed Quantity: 90.0 Unit: tablet Total Allowed Fills: 1 Fills Dispensed: 0 lidocaine-prilocaine 2.5%-2.5% topical cream 1 application, Topically, Once, apply to port 45 min before use, # 30 Gm, 0 Refills, Soft Stop, 08/09/25 3:50:00 PM EDT, Cream, [facility] #[id number], Partial fill upon patient request if the [...] cream See Instructions, apply small dollop to [facility] 1 hr prior to appt and cover with plastic, #30 Gm, 1 Refills, Maintenance, 08/22/25 9:21:00 AM EST, Cream, [facility] #[id number], Partialfill upon patient request if the prescription is for a schedule II opioid drug., apply small dollopto [facility] site 1 hr prior to appt and [...] Refills, Maintenance, 08/22/25 9:21:00 AM EST, Tablet, [facility] #[id number], Partial fill upon patient request if the [...] 1 Refills, Maintenance, 08/22/25 9:21:00 AM EST, [facility] #[id number], Partial fill upon patient request if the [...] Active PTSD (post-traumatic stress disorder) Confirmed Active Patient Care team information Care Team Personnel Name: Carmen Guo MD [facility] Physician - Primary Care Member Role: PCP Address: [address] [place] [address] Adult and Pediatric Medicine [address] Telecom: Name: Gladys Cantor RN Position: [facility] Onco RN Member Role: Primary Care Nurse Name: Liliana Rowell RN Position[facility] Onco RN Member Role: Primary Care Nurse Care Team Related Persons Name: ARTEM LOWE Name: HUSAM LOWE Name: HI LOWE Name: RUTHANN MANUEL Insurance Providers Guarantor name: JOHNNY LOWE BIXI Plan Information #: 1 Payer: [facility] H[facility] Payer Identifier: CHAPIN Member Number: [id number] Group Number: [id number] Subscriber Identifier: CHAPIN Relationship to Subscriber: self Coverage Type: Commercial Managed Care - HMO Coverage Verification Date: Telecom: NA Address: NA
--- OUTSIDE RECORDS SUMMARY | 2025-09-23 23:59 | XMS_ITS | Continuity of Care Document ---
Author Organization [facility] Address [address] [place] [address]- Care Team Providers Care Nurse Practitioner Manager Name Role Phone Carmen Guo MD Primary Care Physician [phone] [facility] [id number] Date(s): 08/24/25 - 09/23/25 [facility] [address] [place] [address]- Encounter Type: Triage Allergies, Adverse Reactions, Alerts Substance Criticality Severity Reaction Reaction Severity Status azithromycin hives Active Immunizations Given and Recorded Vaccine Date Status Refusal Reason influenza virus vaccine, inactivated 1 08/25/25 Gi keshia influenza virus vaccine, inactivated 08/04/21 Lalo rded pneumococcal 20-valent conjugate vaccine 2 08/25/25 Given tetanus-diphtheria toxoids (Td) 3 04/22/25 Given [id number] 12y+ bivalent booster vax 08/15/22 Recorded SARS-CoV-2 (COVID-19) mRNA-1273 vaccine 08/04/21 R ecorded SARS-CoV-2 (COVID-19) mRNA-1273 vaccine 01/15/21 R ecorded SARS-CoV-2 (COVID-19) mRNA-1273 vaccine 12/16/20 R ecorded 1Early/Late Reason: Early/Late Reason: Other : given after chemotherapy 2Early/Late Reason: Early/Late Reason: Other : given after chemo 3Result Comment: [facility] [id number] Medications Ambien 5 mg oral tablet 0.5 [...] 1 Refills, Maintenance, 02/24/25 4:30:00 PM EDT, [facility] #[id number], 169, cm, 01/04/25 18:27:00 EDT, Height, 75, kg, 09/21/24 14:20:00 EST, Dry Weight Start Date: 02/24/25 Status: Ordered Medication Dispense Status: Completed Quantity: 90.0 Unit: tablet Total Allowed Fills: 1 Fills Dispensed: 0 lidocaine-prilocaine 2.5%-2.5% topical cream 1 application, Topically, Once, apply to port 45 min before use, # 30 Gm, 0 Refills, Soft Stop, 08/09/25 3:50:00 PM EDT, [facility] #[id number], Partial fill upon patient request if the [...] cream See Instructions, apply small dollop to [facility] 1 hr prior to appt and cover with plastic, #30 Gm, 1 Refills, Maintenance, 08/22/25 9:21:00 AM EST, Cream, [facility] #[id number], Partialfill upon patient request if the prescription is for a schedule II opioid drug., apply small dollopto [facility] site 1 hr prior to appt [...] Refills, Maintenance, 08/22/25 9:21:00 AM EST, Tablet, [facility] #[id number], Partial fill upon patient request if the [...] 1 Refills, Maintenance, 08/22/25 9:21:00 AM EST, [facility] #[id number], Partial fill upon patient request if the [...] Team Personnel Name: Carmen Guo MD Position: [facility] Physician - Primary Care Member Role: PCP Address: [address] [place] [address] Adult and Pediatric Medicine [place], [place] [address] Telecom: Name: Gladys Cantor RN Position: S Onco RN Member Role: Primary Care Nurse Name: Liliana Rowell RN Position: [facility] RN Member Role: Primary Care Nurse Care Team Related Persons Name: ARTEM LOWE Name: HUSAM LOWE Name: HI LOWE Name: RUTHANN MANUEL Insurance Providers Guarantor name: JOHNNY ALMONTEARES [employer] [facility] Information #: 1 Payer: [facility] H[facility] Payer Identifier: CHAPIN Member Number: [id number] Group Number: [id number] Subscriber Identifier: CHAPIN Relationship to Subscriber: self Coverage Type: Commercial Managed Care - HMO Coverage Verification Date: CHAPIN Telecom: CHAPIN Address: NA
--- OUTSIDE RECORDS SUMMARY | 2025-09-24 23:59 | XMS_ITS | Continuity of Care Document ---
Author Organization [facility] Address [address] [place] [address]- Care Team Providers Care Property Management Intern Name Role Phone Carmen Guo MD Primary Care Physician Encounter [facility] Date(s): 08/25/25 - 09/24/25 [facility] [address] [place] [address] Attending Physician: Carla Lee Admitting Physician: Carla Lee Referring Physician: trCarla Encounter Type: Triage Allergies, Adverse Reactions, Alerts Substance Criticality Severity Reaction Reaction Severity Status azithromycin hives Active Immunizations Given and Recorded Vaccine Date Status Refusal Reason influenza virus vaccine, inactivated 1 08/25/25 Gi keshia influenza virus vaccine, inactivated 08/04/21 Lalo rded pneumococcal 20-valent conjugate vaccine 2 08/25/25 Given tetanus-diphtheria toxoids (Td) 3 04/22/25 Given [id number] 12y+ bivalent booster vax 08/15/22 Recorded SARS-CoV-2 (COVID-19) mRNA-1273 vaccine 08/04/21 R ecorded SARS-CoV-2 (COVID-19) mRNA-1273 vaccine 01/15/21 R ecorded SARS-CoV-2 (COVID-19) mRNA-1273 vaccine 12/16/20 R ecorded 1Early/Late Reason: Early/Late Reason: Other : given after chemotherapy 2Early/Late Reason: Early/Late Reason: Other : given after chemo 3Result Comment: [facility] [id number] Medications Ambien 5 mg oral tablet 0.5 [...] 1 Refills, Maintenance, 02/24/25 4:30:00 PM EDT, [facility] #[id number], 169, cm, 01/04/25 18:27:00 EDT, Height, 75, kg, 09/21/24 14:20:00 EST, Dry Weight Start Date: 02/24/25 Status: Ordered Medication Dispense Status: Completed Quantity: 90.0 Unit: tablet Total Allowed Fills: 1 Fills Dispensed: 0 lidocaine-prilocaine 2.5%-2.5% topical cream 1 application, Topically, Once, apply to port 45 min before use, # 30 Gm, 0 Refills, Soft Stop, 08/09/25 3:50:00 PM EDT, [facility] #[id number], Partial fill upon patient request if the [...] cream See Instructions, apply small dollop to [facility] 1 hr prior to appt and cover with plastic, #30 Gm, 1 Refills, Maintenance, 08/22/25 9:21:00 AM EST, [facility] #[id number], Partialfill upon patient request if the prescription is for a schedule II opioid drug., apply small dollopto [facility] 1 hr prior to appt [...] Refills, Maintenance, 08/22/25 9:21:00 AM EST, Tablet, [facility] #[id number], Partial fill upon patient request if the [...] 1 Refills, Maintenance, 08/22/25 9:21:00 AM EST, [facility] #[id number], Partial fill upon patient request if the [...] Care team information Care Team Personnel Name: Cramen Guo MD Position: [facility] Physician - Primary Care Member Role: PCP Address: [address] [place] [address] Adult and Pediatric Medicine [address] Telecom: Name: Gladys Cantor RN Position: [facility] Onco RN Member Role: Primary Care Nurse Name: Lliiana Rowell RN Position: [facility] Onco RN Member Role: Primary Care Nurse Care Team Related Persons Name: ARTEM LOWE Name: HUSAM LOWE Name: HI LOWE Name: RUTHANN MANUEL Insurance Providers Guarantor name: JOHNNY LOWE Health Plan Information #: 1 Payer: [facility] HMO Payer Identifier: CHAPIN Member Number: [id number] Group Number: [id number] Subscriber Identifier: CHAPIN Relationship to Subscriber: self Coverage Type: Commercial Managed Care - HMO Coverage Verification Date: CHAPIN Telecom: CHAPIN Address:
--- NOTE | 2025-09-26 14:23 | MHC.OFFVISPS ---
Intake Intake Visit Reasons: depression Allergies azithromycin (From ZITHROMAX Z-EMIL) Allergy (Unknown, Unverified 06/29/20 17:05) HIVES Medication List - Last Reconciled 09/26/25 by Iván Virk MD bupropion HCl XL 300 mg PO DAILY clonidine HCl 0.1 mg PO BID PRN 90 days cyproheptadine 4 mg PO BEDTIME PRN darifenacin ER 7.5 mg PO DAILY methylphenidate HCl ER (Concerta) 18 mg PO DAILY 60 days mirtazapine 7.5 - 15 mg (0.5 - 1 x 15 mg) PO BEDTIME 30 days montelukast 10 mg PO DAILY oxycodone 5 mg PO Q8H PRN zolpidem (Ambien) 5 mg PO BEDTIME PRN HPI- Psychiatric Chief Complaint: depression HPI Narrative: he patient verbally consented to this video encounter. This video encounter was conducted via secure, interactive video conferencing. The patient's identity was established before proceeding with the video encounter by confirmation of their name and an additional identifier. Reason for Visit: Follow-up on chemotherapy and mental health support. Subjective: Patient is a 45-year-old female with a history PTSD recurrent depression history of alcohol abuse has been sober. Patient has been dealing with recent diagnosis of breast cancer initial surgery had margins that still showed cancer and she will need recurrent surgery. She is having to undergo radiation and chemotherapy. She has also recently . The patient is currently undergoing chemotherapy for breast cancer and has completed five treatments with seven more to go. She is experiencing increasing feelings of depression and fatigue. Recently, she has had nausea, diarrhea, and painful bowel movements as side effects of the chemotherapy. She reports an inability to taste food, hair loss, and dry nasal passages. The patient is feeling isolated and is homebound due to fatigue, although she has started driving again. She is seeing a social organization professor and plans to join support groups but finds it difficult to engage. She expresses concern about her financial situation as she is on short-term disability, receiving 60% of her usual income. The patient has a history of breast cancer with previous surgery and positive margins. She is taking mirtazapine, Concerta, and Ambien. She does not smoke or drink and is concerned about weight gain. She is participating more in activities like crocheting and considering art therapy. The patient is on short-term disability and plans to sign up for long-term disability. Support from family is limited, but she maintains regular contact with her mother and brother. Objective: Awake and alert. Not in acute respiratory distress. Appropriate mood and affect. Past Psychiatric History: History of 2 past psychiatric hospitalizations past suicidality history of PTSD recurrent depression has been generally East stable mood mary for an extended period of time Pt is worried how mediation is going to go Mental Status Exam Mental Status Exam Narrative: Appearance: Casually dressed Behavior: Cooperative appropriate psychomotor: Within normal limits Speech: Normal volume and prosody Thought proccess logical ruminating Thought content: Focused on medical issues does feel supported states feels generally currently mentally stable Knows she needs to increase her activity Mood: anxiety Affect: Appropriate to mood more full range SI:denies HI:denies VH/AH:none Delusions: None Insight/judgment: Feeling emotionally improved still anxious Memory/cog: Intact Assessment and Plan Assessment & Plan (1) Chronic post-traumatic stress disorder (PTSD): Status: Acute Code(s): F43.12 - Post-traumatic stress disorder, chronic Plan Assessment: The patient is undergoing treatment for breast cancer, currently in the midst of a chemotherapy regimen. She is experiencing multiple side effects from chemotherapy, including gastrointestinal issues, fatigue, and depression. Her mental health is affected by treatment, isolation, and financial stress. The ongoing treatment plan includes Herceptin infusions and possible further surgery if margins remain positive. Plan: 1. Continue chemotherapy as planned, with Herceptin infusions once a month for a year. 2. Monitor mental health closely; continue sessions with social organization professor and explore additional support groups. 3. Encourage participation in art therapy and other low-energy activities for mental health support. 4. Advise careful dietary monitoring and moderate activity as tolerated to manage weight gain. 5. Discuss with oncologist about any additional supports for managing chemotherapy side effects. 6. Follow up in two and a half months to reassess treatment progress and mental health status. Counseling and coordination of Care Details: I spent [] minutes reviewing the record, seeing the patient and documenting in the medical record. Counseling provided to the patient/caregiver as outlined below. Addressed patient/caregiver concerns regarding current medication regime including effective adherence. Addressed patient/caregiver concerns regarding diagnosis and prognosis including accuracy of diagnosis, prognosis over time, impact of diagnosis. Addressed patient/caregiver concerns regarding impact of recent stressors. 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
--- OUTSIDE RECORDS SUMMARY | 2025-09-26 22:34 | XMS_ITS | Clinical Summary ---
Author Organization [facility] Address [address] [place] [address] Phone Care Team Providers Care Shrimp Peeling Machine Operator Name Role Phone Carmen Guo MD Primary Care Provider [phone] Social History Tobacco Use Types Packs/Day Years Used Date Smoking Tobacco: Never Assessed Comments Unknown Sex and Gender Information Value Date Recorded Sex Assigned at Female 08/30/2025 3:25 PM EST Legal Sex Female 3:23 PM EST Gender Identity Female 08/30/2025 3:25 PM EST Sexual Orientation Choose not to disclose 2024 3:25 PM EST Plan of Treatment Not on file Medical Devices Not on file Insurance [facility] Address: [address] [address] Care Teams Shrimp Peeling Machine Operator Relationship Specialty Start Date End Date Carmen Guo MD [address] [place] [id number] PCP - General Internal Medicine 08/30/25 Additional Source Comments The information contained in this document represents components of the legal health record. It is not the complete legal health record.[facility]
== END 2025-09-26 16:40 | disposition home or self-care (01) ==
LOC: HO.HOP 16:19
PROVIDERS: PCP Internal Medicine; Visit Provider Psychiatry & Neurology Psychiatry
DX: F43.12 Post-traumatic stress disorder, chronic (principal)
CPT/HCPCS: 99214